=== PATIENT | female | born 1970 | race Caucasian/White ===

== ENCOUNTER 2018-04-13 14:53 | Inpatient (IN) | payer OTHER ==
[~2018-04-13] VITALS: Ht 185.4 cm; Wt 71.5 kg
[2018-04-13] VITALS (8 sets, daily range): BP systolic 97–114; BP diastolic 58–73
[~2018-04-13 14:53] MED LIST: CHOL10002 PO; HYDR-565 PO; LEVO175T2 PO; LYR75C PO; SYN0.088T PO; TRAM50TA2 PO
[2018-04-13 15:38] LABS: BASOPHILS # (AUTO) 0.1 X10'3 (0-0.2); BASOPHILS % (AUTO) 1.2 % (0-1); EOSINOPHILS # (AUTO) 0.3 X10'3 (0-0.9); EOSINOPHILS % (AUTO) 4.4 % (0-6); HEMATOCRIT 41.2 % (35.0-45.0); LYMPHOCYTES % (AUTO) 33.3 % (21-51); MEAN CORPUSCULAR HEMOGLOBIN 30.5 PG (27.0-31.0); MEAN CORPUSCULAR HGB CONC 33.9 % (33.0-36.5); MEAN CORPUSCULAR VOLUME 89.8 FL (78-98); MEAN PLATELET VOLUME 8.5 FL (7.4-10.4); MONOCYTES # (AUTO) 0.5 X10'3 (0-0.9); MONOCYTES % (AUTO) 7.6 % (2-12); NEUTROPHILS # (AUTO) 3.2 X10'3 (1.8-7.7); NEUTROPHILS % (AUTO) 53.5 % (42-75); PLATELET COUNT 202 X10'3 (140-440); RED BLOOD COUNT 4.59 X10'6 (4.20-5.60); WHITE BLOOD COUNT 6.1 X10'3 (4.5-11.0)
[2018-04-13 15:46] LABS: PARTIAL THROMBOPLASTIN TIME 26 SECONDS (22-32); PROTHROMBIN TIME 10.4 SECONDS (9.0-12.0)
[2018-04-13 15:50] LABS: ALANINE AMINOTRANSFERASE 48 U/L (12-78); ALBUMIN 3.7 G/DL (3.4-5.0); ALBUMIN/GLOBULIN RATIO 0.9 (1.1-1.5); ALKALINE PHOSPHATASE 93 IU/L (46-116); ANION GAP 4 (8-16); ASPARTATE AMINO TRANSFERASE 32 U/L (10-37); BILIRUBIN,TOTAL 0.5 MG/DL (0.1-1.0); BLOOD UREA NITROGEN 10 MG/DL (7-18); BUN/CREATININE RATIO 11.5 (6.6-38.0); CALCIUM 8.7 MG/DL (8.5-10.1); CHLORIDE 102 MMOL/L (99-107); CREATININE 0.87 MG/DL (0.40-0.90); GLUCOSE 89 MG/DL (70-104); POTASSIUM 4.4 MMOL/L (3.5-5.1); SODIUM 139 MMOL/L (135-145); TOTAL CARBON DIOXIDE 32.6 MMOL/L (24-32); TOTAL PROTEIN 7.6 G/DL (6.4-8.2); eGFR 69 ML/MIN
[2018-04-13 15:53] LABS: TROPONIN I < 0.04 NG/ML (0.0-0.05)
[2018-04-13] MEDS ORDERED: normal saline 1000ml 1,000 ML IV ONE ×2 (16:00→16:29)
[2018-04-13] MEDS ORDERED: aspirin 325mg tablet PO ONE (16:15)
[2018-04-13] MEDS ORDERED: iohexol 350MG/ML 100ml bottle IV ONE (17:29)
[2018-04-13] MEDS ORDERED: magnesium Cl slow-release 64mg tablet PO PRN (18:45)
[2018-04-13] MEDS ORDERED: magnesium 1gm/100ml D5W IVPB 100 ML IV PRN (18:45)
[2018-04-13] MEDS ORDERED: potassium Cl 20 mEq SR tablet PO PRN (18:45)
[2018-04-13] MEDS ORDERED: ondansetron/PF 4mg/2ml inj IV PRN ×2 (18:45)
[2018-04-13] MEDS ORDERED: magnesium 4gm in 100ml NS 100 ML IV PRN (18:45)
[2018-04-13] MEDS ORDERED: acetaminophen 325mg tablet PO PRN (18:45)
[2018-04-13] MEDS ORDERED: magnesium hydroxide 30ml (MOM) UD suspension PO PRN (18:45)
[2018-04-13 19:36] LABS: CHOL/HDL RATIO 3.1 (0.00-4.99); CHOLESTEROL 136 MG/DL (0-200); HDL CHOLESTEROL 44 MG/DL (35-60); LDL CHOLESTEROL 73 MG/DL (50-100); TRIGLYCERIDES 101 MG/DL (20-135)
[2018-04-13] MEDS: heparin, porcine 5000 units/ml vial SQ SCH (19:39)
[2018-04-13] MEDS: famotidine 20mg tablet PO SCH (20:00)
[2018-04-13] MEDS: atorvastatin 10mg tablet PO SCH (20:00)
[2018-04-13] MEDS: docusate sod 100mg capsule PO SCH (20:00)
[2018-04-13] MEDS: normal saline 1000ml 1,000 ML IV SCH (20:11)
[2018-04-13] MEDS: acetaminophen 325mg tablet PO PRN (22:32)
[2018-04-14 01:40] LABS: CLARITY,URINE CLEAR (Clear); COLOR,URINE YELLOW (Yellow); GLUCOSE, URINE NEGATIVE (Neg); KETONES,URINE NEGATIVE (Neg); LEUKOCYTE ESTERASE ,URINE NEGATIVE (Neg); NITRITES, URINE NEGATIVE (Neg); OCCULT BLOOD,URINE TRACE-INTACT (Neg); PROTEIN,URINE NEGATIVE (Neg); UROBILINOGEN,URINE 0.2 E.U/dL (0.2-1.0)
[2018-04-14 01:44] LABS: UA COLLECTION TYPE CLN CATCH MIDSTREAM
[2018-04-14 01:51] LABS: URINE AMPHETAMINE SCREEN NEGATIVE (Neg); URINE BARBITUATE SCREEN NEGATIVE (Neg); URINE BENZODIAZEPINES SCREEN NEGATIVE (Neg); URINE CANNABINOID SCREEN NEGATIVE (Neg); URINE COCAINE SCREEN NEGATIVE (Neg); URINE METHADONE SCREEN NEGATIVE (Neg); URINE OPIATE SCREEN NEGATIVE (Neg); URINE PHENCYCLIDINE SCREEN NEGATIVE (Neg)
[2018-04-14 02:03] LABS: BACTERIA,URINE FEW /HPF (Neg); RBC,URINE 0-2 /HPF (0-2); SQUAMOUS EPITHELIAL CELL,UR FEW /LPF (FEW); WBC,URINE 0-4 /HPF (0-4)
[2018-04-14 06:09] LABS: BASOPHILS % (AUTO) 0.8 % (0-1); EOSINOPHILS # (AUTO) 0.2 X10'3 (0-0.9); EOSINOPHILS % (AUTO) 4.5 % (0-6); HEMATOCRIT 33.3 % (35.0-45.0); HEMOGLOBIN 11.4 g/dl (12.0-16.0); LYMPHOCYTES # (AUTO) 1.5 X10'3 (1.1-4.8); LYMPHOCYTES % (AUTO) 36.5 % (21-51); MEAN CORPUSCULAR HGB CONC 34.4 % (33.0-36.5); MEAN CORPUSCULAR VOLUME 90.3 FL (78-98); MEAN PLATELET VOLUME 8.5 FL (7.4-10.4); MONOCYTES # (AUTO) 0.4 X10'3 (0-0.9); MONOCYTES % (AUTO) 8.5 % (2-12); NEUTROPHILS # (AUTO) 2.1 X10'3 (1.8-7.7); NEUTROPHILS % (AUTO) 49.7 % (42-75); PLATELET COUNT 135 X10'3 (140-440); RED BLOOD COUNT 3.68 X10'6 (4.20-5.60); RED CELL DISTRIBUTION WIDTH 12.6 % (11.5-14.5); WHITE BLOOD COUNT 4.2 X10'3 (4.5-11.0)
[2018-04-14 06:11] LABS: PROTHROMBIN TIME 10.6 SECONDS (9.0-12.0)
[2018-04-14] MEDS: normal saline 1000ml 1,000 ML IV SCH ×3 (06:12→20:15)
[2018-04-14 06:31] LABS: ALANINE AMINOTRANSFERASE 33 U/L (12-78); ALBUMIN 2.9 G/DL (3.4-5.0); ALKALINE PHOSPHATASE 70 IU/L (46-116); ANION GAP 8 (8-16); ASPARTATE AMINO TRANSFERASE 26 U/L (10-37); BILIRUBIN,TOTAL 0.4 MG/DL (0.1-1.0); BLOOD UREA NITROGEN 7 MG/DL (7-18); BUN/CREATININE RATIO 10.3 (6.6-38.0); CALCIUM 7.8 MG/DL (8.5-10.1); CHLORIDE 107 MMOL/L (99-107); CREATININE 0.68 MG/DL (0.40-0.90); GLUCOSE 91 MG/DL (70-104); MAGNESIUM 1.9 MG/DL (1.5-2.4); PHOSPHORUS 4.6 MG/DL (2.3-4.5); POTASSIUM 3.5 MMOL/L (3.5-5.1); SODIUM 141 MMOL/L (135-145); TOTAL PROTEIN 5.9 G/DL (6.4-8.2); eGFR > 90 ML/MIN
[2018-04-14] MEDS: heparin, porcine 5000 units/ml vial SQ SCH ×2 (08:00→20:10)
[2018-04-14] MEDS: docusate sod 100mg capsule PO SCH ×2 (08:00→20:00)
[2018-04-14] MEDS: atorvastatin 10mg tablet PO SCH (08:44)
[2018-04-14] MEDS: famotidine 20mg tablet PO SCH ×2 (08:44→20:10)
[2018-04-14] MEDS: diazepam 5mg tablet PO PRN ×2 (11:02→12:23)
[2018-04-14] MEDS ORDERED: CHOL50004 PO (14:58)
[2018-04-14] MEDS ORDERED: CYCL-1 PO (14:58)
[2018-04-14] MEDS: acetaminophen 325mg tablet PO PRN (16:37)
[2018-04-14] MEDS ORDERED: diazepam 5mg tablet PO PRN (18:15)
[2018-04-14 19:50] VITALS: BP 105/63
[2018-04-14] MEDS ORDERED: aspirin 81mg tab.chew PO STA (20:28)
[2018-04-14] MEDS: traMADol 50MG tablet PO PRN (21:11)
[2018-04-14 22:00] VITALS: BP 104/69
[2018-04-15] VITALS (7 sets, daily range): BP systolic 96–119; BP diastolic 60–71
[2018-04-15] MEDS: normal saline 1000ml 1,000 ML IV SCH ×2 (05:01→16:01)
[2018-04-15 06:14] LABS: PROTHROMBIN TIME 10.6 SECONDS (9.0-12.0)
[2018-04-15 06:22] LABS: BASOPHILS % (AUTO) 0.8 % (0-1); EOSINOPHILS # (AUTO) 0.2 X10'3 (0-0.9); EOSINOPHILS % (AUTO) 4.5 % (0-6); HEMATOCRIT 34.1 % (35.0-45.0); LYMPHOCYTES # (AUTO) 1.7 X10'3 (1.1-4.8); LYMPHOCYTES % (AUTO) 46.9 % (21-51); MEAN CORPUSCULAR HEMOGLOBIN 31.4 PG (27.0-31.0); MEAN CORPUSCULAR HGB CONC 35.1 % (33.0-36.5); MEAN CORPUSCULAR VOLUME 89.3 FL (78-98); MEAN PLATELET VOLUME 9.1 FL (7.4-10.4); MONOCYTES # (AUTO) 0.2 X10'3 (0-0.9); MONOCYTES % (AUTO) 6.9 % (2-12); NEUTROPHILS # (AUTO) 1.5 X10'3 (1.8-7.7); NEUTROPHILS % (AUTO) 40.9 % (42-75); PLATELET COUNT 133 X10'3 (140-440); RED BLOOD COUNT 3.82 X10'6 (4.20-5.60); RED CELL DISTRIBUTION WIDTH 12.6 % (11.5-14.5); WHITE BLOOD COUNT 3.6 X10'3 (4.5-11.0)
[2018-04-15 07:21] LABS: ALANINE AMINOTRANSFERASE 31 U/L (12-78); ALBUMIN 3.1 G/DL (3.4-5.0); ALKALINE PHOSPHATASE 65 IU/L (46-116); ANION GAP 4 (8-16); ASPARTATE AMINO TRANSFERASE 19 U/L (10-37); BILIRUBIN,TOTAL 0.4 MG/DL (0.1-1.0); BLOOD UREA NITROGEN 4 MG/DL (7-18); BUN/CREATININE RATIO 5.9 (6.6-38.0); CALCIUM 8.1 MG/DL (8.5-10.1); CHLORIDE 108 MMOL/L (99-107); CREATININE 0.68 MG/DL (0.40-0.90); GLUCOSE 91 MG/DL (70-104); MAGNESIUM 2.1 MG/DL (1.5-2.4); PHOSPHORUS 4.3 MG/DL (2.3-4.5); POTASSIUM 3.2 MMOL/L (3.5-5.1); SODIUM 137 MMOL/L (135-145); TOTAL CARBON DIOXIDE 25.2 MMOL/L (24-32); TOTAL PROTEIN 6.2 G/DL (6.4-8.2); eGFR > 90 ML/MIN
[2018-04-15] MEDS ORDERED: levoTHYROXINE 100mcg tablet PO SCH (07:30)
[2018-04-15] MEDS: docusate sod 100mg capsule PO SCH ×2 (08:00→19:43)
[2018-04-15] MEDS: heparin, porcine 5000 units/ml vial SQ SCH ×2 (09:35→19:43)
[2018-04-15] MEDS: atorvastatin 10mg tablet PO SCH (09:36)
[2018-04-15] MEDS: levoTHYROXINE 100mcg tablet PO SCH (09:37)
[2018-04-15] MEDS: potassium Cl 20 mEq SR tablet PO PRN ×3 (09:37→21:11)
[2018-04-15] MEDS: famotidine 20mg tablet PO SCH ×2 (09:38→19:43)
[2018-04-15] MEDS: aspirin 81mg tab.chew PO SCH (09:38)
[2018-04-15] MEDS: acetaminophen 325mg tablet PO PRN (13:59)
[2018-04-15] MEDS: traMADol 50MG tablet PO PRN ×2 (16:00→22:06)
[2018-04-16] MEDS: normal saline 1000ml 1,000 ML IV SCH ×2 (01:50→16:45)
[2018-04-16 02:02] VITALS: BP 107/62
[2018-04-16 06:00] VITALS: BP 99/62
[2018-04-16 06:45] LABS: BASOPHILS % (AUTO) 0.8 % (0-1); EOSINOPHILS # (AUTO) 0.1 X10'3 (0-0.9); EOSINOPHILS % (AUTO) 3.6 % (0-6); HEMATOCRIT 32.5 % (35.0-45.0); HEMOGLOBIN 11.4 g/dl (12.0-16.0); LYMPHOCYTES % (AUTO) 54.8 % (21-51); MEAN CORPUSCULAR HEMOGLOBIN 31.5 PG (27.0-31.0); MEAN CORPUSCULAR HGB CONC 35.1 % (33.0-36.5); MEAN CORPUSCULAR VOLUME 89.8 FL (78-98); MONOCYTES # (AUTO) 0.3 X10'3 (0-0.9); MONOCYTES % (AUTO) 7.1 % (2-12); NEUTROPHILS # (AUTO) 1.2 X10'3 (1.8-7.7); NEUTROPHILS % (AUTO) 33.7 % (42-75); PLATELET COUNT 138 X10'3 (140-440); RED BLOOD COUNT 3.62 X10'6 (4.20-5.60); RED CELL DISTRIBUTION WIDTH 12.6 % (11.5-14.5); WHITE BLOOD COUNT 3.6 X10'3 (4.5-11.0)
[2018-04-16 07:09] LABS: PROTHROMBIN TIME 10.6 SECONDS (9.0-12.0)
[2018-04-16 07:26] LABS: ALANINE AMINOTRANSFERASE 30 U/L (12-78); ALBUMIN 2.9 G/DL (3.4-5.0); ALKALINE PHOSPHATASE 63 IU/L (46-116); ANION GAP 4 (8-16); ASPARTATE AMINO TRANSFERASE 20 U/L (10-37); BILIRUBIN,TOTAL 0.3 MG/DL (0.1-1.0); BLOOD UREA NITROGEN 6 MG/DL (7-18); BUN/CREATININE RATIO 7.4 (6.6-38.0); CALCIUM 7.8 MG/DL (8.5-10.1); CHLORIDE 109 MMOL/L (99-107); CREATININE 0.81 MG/DL (0.40-0.90); GLUCOSE 89 MG/DL (70-104); MAGNESIUM 1.9 MG/DL (1.5-2.4); PHOSPHORUS 4.3 MG/DL (2.3-4.5); POTASSIUM 3.8 MMOL/L (3.5-5.1); SODIUM 140 MMOL/L (135-145); TOTAL CARBON DIOXIDE 27.5 MMOL/L (24-32); TOTAL PROTEIN 5.8 G/DL (6.4-8.2); eGFR 75 ML/MIN
[2018-04-16] MEDS: docusate sod 100mg capsule PO SCH ×2 (08:00→19:07)
[2018-04-16] MEDS: heparin, porcine 5000 units/ml vial SQ SCH ×2 (08:38→19:03)
[2018-04-16] MEDS: aspirin 81mg tab.chew PO SCH (08:39)
[2018-04-16] MEDS: famotidine 20mg tablet PO SCH ×2 (08:39→19:03)
[2018-04-16] MEDS: levoTHYROXINE 100mcg tablet PO SCH (08:39)
[2018-04-16] MEDS: traMADol 50MG tablet PO PRN ×2 (08:39→20:58)
[2018-04-16] MEDS: atorvastatin 10mg tablet PO SCH (08:40)
[2018-04-16 10:00] VITALS: BP 99/68
[2018-04-16] MEDS: acetaminophen 325mg tablet PO PRN (12:43)
[2018-04-16 18:00] VITALS: BP 95/58
[2018-04-16 22:00] VITALS: BP 98/56
[2018-04-17] MEDS: traMADol 50MG tablet PO PRN ×3 (02:54→22:02)
[2018-04-17 07:13] LABS: BASOPHILS # (AUTO) 0.1 X10'3 (0-0.2); BASOPHILS % (AUTO) 1.3 % (0-1); EOSINOPHILS # (AUTO) 0.2 X10'3 (0-0.9); EOSINOPHILS % (AUTO) 4.7 % (0-6); HEMATOCRIT 33.7 % (35.0-45.0); HEMOGLOBIN 11.9 g/dl (12.0-16.0); LYMPHOCYTES # (AUTO) 1.9 X10'3 (1.1-4.8); LYMPHOCYTES % (AUTO) 46.4 % (21-51); MEAN CORPUSCULAR HEMOGLOBIN 31.5 PG (27.0-31.0); MEAN CORPUSCULAR HGB CONC 35.4 % (33.0-36.5); MEAN PLATELET VOLUME 9.1 FL (7.4-10.4); MONOCYTES # (AUTO) 0.3 X10'3 (0-0.9); MONOCYTES % (AUTO) 7.4 % (2-12); NEUTROPHILS # (AUTO) 1.7 X10'3 (1.8-7.7); NEUTROPHILS % (AUTO) 40.2 % (42-75); PLATELET COUNT 140 X10'3 (140-440); RED BLOOD COUNT 3.79 X10'6 (4.20-5.60); RED CELL DISTRIBUTION WIDTH 12.7 % (11.5-14.5); WHITE BLOOD COUNT 4.2 X10'3 (4.5-11.0)
[2018-04-17 07:30] LABS: PROTHROMBIN TIME 10.4 SECONDS (9.0-12.0)
[2018-04-17 07:36] VITALS: BP 99/63
[2018-04-17 07:45] LABS: ALANINE AMINOTRANSFERASE 36 U/L (12-78); ALBUMIN 3.1 G/DL (3.4-5.0); ALKALINE PHOSPHATASE 65 IU/L (46-116); ANION GAP 7 (8-16); ASPARTATE AMINO TRANSFERASE 31 U/L (10-37); BILIRUBIN,TOTAL 0.3 MG/DL (0.1-1.0); BLOOD UREA NITROGEN 8 MG/DL (7-18); BUN/CREATININE RATIO 9.4 (6.6-38.0); CHLORIDE 106 MMOL/L (99-107); CREATININE 0.85 MG/DL (0.40-0.90); GLUCOSE 88 MG/DL (70-104); MAGNESIUM 1.9 MG/DL (1.5-2.4); PHOSPHORUS 5.2 MG/DL (2.3-4.5); POTASSIUM 3.7 MMOL/L (3.5-5.1); SODIUM 141 MMOL/L (135-145); TOTAL CARBON DIOXIDE 27.6 MMOL/L (24-32); TOTAL PROTEIN 6.2 G/DL (6.4-8.2); eGFR 71 ML/MIN
[2018-04-17] MEDS: levoTHYROXINE 100mcg tablet PO SCH (07:56)
[2018-04-17] MEDS: aspirin 81mg tab.chew PO SCH (07:56)
[2018-04-17] MEDS: atorvastatin 10mg tablet PO SCH (07:57)
[2018-04-17] MEDS: famotidine 20mg tablet PO SCH ×2 (07:57→20:35)
[2018-04-17] MEDS: docusate sod 100mg capsule PO SCH ×2 (07:57→20:35)
[2018-04-17] MEDS: heparin, porcine 5000 units/ml vial SQ SCH ×2 (08:02→20:36)
[2018-04-17] MEDS ORDERED: LORazepam 2 mg/ml vial IV ONE (09:10)
[2018-04-17 11:00] VITALS: BP 93/59
[2018-04-17 18:00] VITALS: BP 82/48
[2018-04-17] MEDS: acetaminophen 325mg tablet PO PRN (20:37)
[2018-04-17 22:00] VITALS: BP 94/58
[2018-04-18 05:00] VITALS: BP 93/56
[2018-04-18 06:11] LABS: BASOPHILS % (AUTO) 0.3 % (0-1); EOSINOPHILS # (AUTO) 0.2 X10'3 (0-0.9); EOSINOPHILS % (AUTO) 4.8 % (0-6); HEMATOCRIT 35.2 % (35.0-45.0); HEMOGLOBIN 12.2 g/dl (12.0-16.0); LYMPHOCYTES # (AUTO) 1.9 X10'3 (1.1-4.8); LYMPHOCYTES % (AUTO) 37.1 % (21-51); MEAN CORPUSCULAR HEMOGLOBIN 31.2 PG (27.0-31.0); MEAN CORPUSCULAR HGB CONC 34.6 % (33.0-36.5); MEAN CORPUSCULAR VOLUME 90.3 FL (78-98); MEAN PLATELET VOLUME 9.3 FL (7.4-10.4); MONOCYTES # (AUTO) 0.4 X10'3 (0-0.9); MONOCYTES % (AUTO) 7.9 % (2-12); NEUTROPHILS # (AUTO) 2.5 X10'3 (1.8-7.7); NEUTROPHILS % (AUTO) 49.9 % (42-75); PLATELET COUNT 153 X10'3 (140-440); RED CELL DISTRIBUTION WIDTH 12.8 % (11.5-14.5)
[2018-04-18 06:19] LABS: PROTHROMBIN TIME 10.3 SECONDS (9.0-12.0)
[2018-04-18 06:26] LABS: ALANINE AMINOTRANSFERASE 75 U/L (12-78); ALBUMIN 3.1 G/DL (3.4-5.0); ALKALINE PHOSPHATASE 67 IU/L (46-116); ANION GAP 8 (8-16); ASPARTATE AMINO TRANSFERASE 76 U/L (10-37); BILIRUBIN,TOTAL 0.2 MG/DL (0.1-1.0); BLOOD UREA NITROGEN 8 MG/DL (7-18); BUN/CREATININE RATIO 10.3 (6.6-38.0); CHLORIDE 105 MMOL/L (99-107); CREATININE 0.78 MG/DL (0.40-0.90); GLUCOSE 87 MG/DL (70-104); PHOSPHORUS 4.9 MG/DL (2.3-4.5); POTASSIUM 3.6 MMOL/L (3.5-5.1); SODIUM 140 MMOL/L (135-145); TOTAL CARBON DIOXIDE 27.1 MMOL/L (24-32); TOTAL PROTEIN 6.2 G/DL (6.4-8.2); eGFR 78 ML/MIN
[2018-04-18] MEDS: levoTHYROXINE 125mcg tablet PO SCH ×2 (08:00→08:20)
[2018-04-18] MEDS: docusate sod 100mg capsule PO SCH ×2 (08:20→20:00)
[2018-04-18] MEDS: atorvastatin 10mg tablet PO SCH (08:21)
[2018-04-18] MEDS: traMADol 50MG tablet PO PRN ×2 (08:21→20:26)
[2018-04-18] MEDS: aspirin 81mg tab.chew PO SCH (08:21)
[2018-04-18] MEDS: famotidine 20mg tablet PO SCH ×2 (08:21→20:20)
[2018-04-18] MEDS: heparin, porcine 5000 units/ml vial SQ SCH ×2 (08:27→20:27)
[2018-04-18 10:00] VITALS: BP 106/50
[2018-04-18] MEDS ORDERED: gadopentetate dimeglumine 7.5 MMOL/15 ML syringe ONE (17:35)
[2018-04-18 18:00] VITALS: BP 98/63
[2018-04-18] MEDS: acetaminophen 325mg tablet PO PRN (21:44)
[2018-04-18 22:00] VITALS: BP 98/60
[2018-04-19] MEDS: traMADol 50MG tablet PO PRN ×2 (02:26→09:01)
[2018-04-19 05:00] VITALS: BP 92/56
[2018-04-19] MEDS: acetaminophen 325mg tablet PO PRN ×2 (05:20→13:10)
[2018-04-19 06:00] LABS: BASOPHILS % (AUTO) 0.7 % (0-1); EOSINOPHILS # (AUTO) 0.3 X10'3 (0-0.9); EOSINOPHILS % (AUTO) 5.3 % (0-6); HEMATOCRIT 36.8 % (35.0-45.0); HEMOGLOBIN 12.8 g/dl (12.0-16.0); LYMPHOCYTES # (AUTO) 2.1 X10'3 (1.1-4.8); LYMPHOCYTES % (AUTO) 42.4 % (21-51); MEAN CORPUSCULAR HEMOGLOBIN 31.1 PG (27.0-31.0); MEAN CORPUSCULAR HGB CONC 34.6 % (33.0-36.5); MEAN CORPUSCULAR VOLUME 89.9 FL (78-98); MONOCYTES # (AUTO) 0.4 X10'3 (0-0.9); MONOCYTES % (AUTO) 7.8 % (2-12); NEUTROPHILS # (AUTO) 2.2 X10'3 (1.8-7.7); NEUTROPHILS % (AUTO) 43.8 % (42-75); PLATELET COUNT 173 X10'3 (140-440)
[2018-04-19 06:12] LABS: PROTHROMBIN TIME 10.3 SECONDS (9.0-12.0)
[2018-04-19 06:29] LABS: ALANINE AMINOTRANSFERASE 97 U/L (12-78); ALBUMIN 3.1 G/DL (3.4-5.0); ALBUMIN/GLOBULIN RATIO 0.9 (1.1-1.5); ALKALINE PHOSPHATASE 73 IU/L (46-116); ANION GAP 7 (8-16); ASPARTATE AMINO TRANSFERASE 76 U/L (10-37); BILIRUBIN,TOTAL 0.3 MG/DL (0.1-1.0); BLOOD UREA NITROGEN 7 MG/DL (7-18); BUN/CREATININE RATIO 8.3 (6.6-38.0); CHLORIDE 105 MMOL/L (99-107); CREATININE 0.84 MG/DL (0.40-0.90); GLUCOSE 85 MG/DL (70-104); MAGNESIUM 2.1 MG/DL (1.5-2.4); PHOSPHORUS 4.9 MG/DL (2.3-4.5); POTASSIUM 4.1 MMOL/L (3.5-5.1); SODIUM 140 MMOL/L (135-145); TOTAL CARBON DIOXIDE 28.1 MMOL/L (24-32); TOTAL PROTEIN 6.4 G/DL (6.4-8.2); eGFR 72 ML/MIN
[2018-04-19] MEDS ORDERED: levoTHYROXINE 125mcg tablet PO SCH ×2 (07:30→08:41)
[2018-04-19 07:42] VITALS: BP 103/59
[2018-04-19] MEDS: docusate sod 100mg capsule PO SCH (07:44)
[2018-04-19] MEDS: famotidine 20mg tablet PO SCH (07:44)
[2018-04-19] MEDS: aspirin 81mg tab.chew PO SCH (07:44)
[2018-04-19] MEDS: atorvastatin 10mg tablet PO SCH (07:44)
[2018-04-19] MEDS: heparin, porcine 5000 units/ml vial SQ SCH (07:44)
[2018-04-19] MEDS ORDERED: levoTHYROXINE 100mcg tablet PO SCH (08:43)
[2018-04-19 10:00] VITALS: BP 104/63
[2018-04-19] MEDS ORDERED: FAMO20TA8 PO (10:39)
[2018-04-19] MEDS ORDERED: ASPI-1265 PO (10:39)
[2018-04-20] MEDS ORDERED: levoTHYROXINE 125mcg tablet PO SCH (07:30)
== END 2018-04-19 14:15 | disposition home health service (06) | DRG 556 ==
LOC: ER 14:54 → ED HOLD 18:44 → ORTHO 4S 04-14 19:39
PROVIDERS: ADMIT Internal Medicine; ATTEND Family Medicine
PROC: 3E03317 Introduction of Other Thrombolytic into Peripheral Vein, Percutaneous Approach (ICD-10-PCS; principal; 2018-04-13)
PROC: B3281ZZ Computerized Tomography (CT Scan) of Bilateral Internal Carotid Arteries using Low Osmolar Contrast (ICD-10-PCS; 2018-04-13)
PROC: B32G1ZZ Computerized Tomography (CT Scan) of Bilateral Vertebral Arteries using Low Osmolar Contrast (ICD-10-PCS; 2018-04-13)
DX: M62.81 Muscle weakness (generalized) (principal); F44.9 Dissociative and conversion disorder, unspecified; G89.29 Other chronic pain; M54.9 Dorsalgia, unspecified; E89.0 Postprocedural hypothyroidism; F17.200 Nicotine dependence, unspecified, uncomplicated; W18.39XA Other fall on same level, initial encounter; F41.9 Anxiety disorder, unspecified; Z79.899 Other long term (current) drug therapy; Z79.890 Hormone replacement therapy; Z88.6 Allergy status to analgesic agent; Z88.8 Allergy status to other drugs, medicaments and biological substances; Y93.89 Activity, other specified; Y92.89 Other specified places as the place of occurrence of the external cause; Y99.8 Other external cause status
CPT/HCPCS: 36415; 70496; 70498; 70551; 71045; 72141; 72157; 72158; 80053; 80061; 80305; 81001; 83735; 84100; 84443; 84484; 85025; 85610; 85651; 85730; 86038; 87070; 93005; 93306; 96360; 97110; 97116; 97162; 99291; A6213; A9579; J1644; J2060; J2997; J7030; Q9967

== ENCOUNTER 2021-08-27 07:22 | Day surgery (SDC) | payer OTHER ==
[~2021-08-27] VITALS: Ht 185.4 cm; Wt 83.0 kg
[~2021-08-27 07:22] MED LIST changes: +ASPI-1265 PO; -CHOL10002 PO; +CHOL50004 PO; +CYCL-1 PO; +FAMO20TA8 PO; -HYDR-565 PO; -LYR75C PO
[2021-08-27] MEDS ORDERED: FLEXERIL PO (08:07)
[2021-08-27] MEDS ORDERED: CALCIUM + D (08:07)
[2021-08-27] MEDS ORDERED: LEVO100T PO (08:07)
[2021-08-27] MEDS ORDERED: IBUP-1986 PO (08:07)
[2021-08-27 08:50] VITALS: BP 105/68
[2021-08-27] MEDS ORDERED: IOPAMIDOL 10 ML VIAL IT ONE (10:55)
[2021-08-27 11:45] VITALS: BP 109/54
[2021-08-27 12:37] VITALS: BP 104/61
[2021-08-27 12:52] VITALS: BP 96/62
[2021-08-27 13:21] VITALS: BP 102/62
== END 2021-08-27 13:40 | disposition home or self-care (01) ==
LOC: SSTAY O 07:22
PROVIDERS: ATTEND Family Medicine
DX: M54.16 Radiculopathy, lumbar region (principal)
CPT/HCPCS: 62328; 72132; Q9966; 62284; 72265

== ENCOUNTER 2025-01-03 08:58 | Outpatient (CLI) | payer OTHER ==
[~2025-01-03 08:58] MED LIST changes: -ASPI-1265 PO; +CALCIUM + D; -CHOL50004 PO; -CYCL-1 PO; -FAMO20TA8 PO; +FLEXERIL PO; +IBUP-1986 PO; +LEVO100T PO; -LEVO175T2 PO; -SYN0.088T PO
--- NOTE | 2025-01-03 11:24 | RADIOLOGY REPORT ---
Exam: MR MRI PELVIS History: PAIN IN RIGHT HIP,LUMBAR RADICULOPATHY Comparison: None Technique: Multisequence multiplanar MRI images of the pelvis were performed. Findings: Bladder: Unremarkable. Visualized bowel: Visualized portion of the bowel is grossly unremarkable without evidence for obstru ction. Pelvic organs: Unremarkable Lymphadenopathy: No evidence for pelvic lymphadenopathy. Vasculature: There is normal enhancement of the pelvic vasculature. Ascites: Absent. Musculoskeletal: The bone marrow signal is preserved. Few sacral Tarlov cysts are present. IMPRESSION: Limited examination as patient was unable to tolerate full extent of exam. Visualized portions of the pelvis are without acute findings.
--- NOTE | 2025-01-03 11:35 | RADIOLOGY REPORT ---
CLINICAL INFORMATION: Lumbar radiculopathy. TECHNIQUE: Multisequence multiplanar MRI images of the lumbar spine were obtained without contrast. COMPARISON: CT LUMBAR SPINE on DOS: 08/27/21 INTERPRETATION: There is signal loss artifact limiting evaluation. Vertebral body alignment is within normal limits. Multilevel small Schmorl's nodes. Vertebral body heights are otherwise maintained. P osterior elements are intact. No focal suspicious marrow signal abnormality. Visualized spinal cor d and cauda equina are within normal limits. The conus medullaris is appropriate in signal at the L1 level. Paraspinal soft tissues are unremarkable. L1-L2: Disc desiccation. No significant disc bulge or spinal canal stenosis. No significant neural f oraminal stenosis. L2-L3: Disc desiccation. No significant disc bulge or spinal canal stenosis. No significant neural f oraminal stenosis. L3-L4: Disc desiccation with mild disc space narrowing. Minimal disc bulge mildly indenting the vent ral aspect of the thecal sac. No significant spinal canal stenosis. Facet hypertrophy with moderate b ilateral neural foraminal stenoses. L4-L5: Disc desiccation. Mild disc bulge mildly flattening the ventral aspect of the thecal sac. The re is a small left subarticular/ foraminal annular fissure. No significant spinal canal stenosis. Fac et hypertrophy with moderate bilateral neural foraminal stenoses. L5-S1: Disc desiccation with moderate disc space narrowing. No significant disc bulge or spinal gabino l stenosis. Facet hypertrophy with mild bilateral neural foraminal stenoses. IMPRESSION: 1. Degenerative disc disease and facet disease in the lumbar spine with associated neural foraminal s tenoses as detailed above. No significant spinal canal stenosis. 2. Annular fissure at L4-L5. 3. Additional findings as detailed above.
--- NOTE | 2025-01-03 14:13 | RADIOLOGY REPORT ---
Procedure: MR MRI LOWER EXTREMITY RIGHT 01/03/2025 10:24 AM Indication: RIGHT HIP PAIN,LUMBAR RADICULOPATHY COMPARISON: None TECHNIQUE: MRI was performed utilizing multiple appropriate imaging planes and pulse sequences. FINDINGS: Hip Joint: Unremarkable. Acetabular Labrum: The anterior labrum is markedly attenuated /macerated. Hamstring tendons: Unremarkable. Quadriceps tendons: Unremarkable. Gluteal tendons: Unremarkable. Iliopsoas tendons: Unremarkable. Sciatic nerve: Unremarkable. Bone marrow: Unremarkable. Other: None. IMPRESSION: 1. Macerated anterior labrum.
== END 2025-01-03 23:59 | disposition home or self-care (01) ==
LOC: MRI02 08:58
PROVIDERS: ATTEND Student in an Organized Health Care Education/Training Program
DX: M51.17 Intervertebral disc disorders with radiculopathy, lumbosacral region (principal); M25.551 Pain in right hip; M48.07 Spinal stenosis, lumbosacral region; G96.191 Perineural cyst
CPT/HCPCS: 72148; 72195; 73721